=== PATIENT | female | born 1940 | race Caucasian/White ===

== ENCOUNTER 2019-01-01 21:18 | Inpatient (IN) | payer MEDICARE, OTHER ==
[2019-01-01 22:08] LABS: ADD MAN DIFF? NO
[2019-01-01 22:09] LABS: WHITE BLOOD COUNT 11.8 10^3/ul (4.8-10.8)
[2019-01-01 22:09] LABS: ABNORMAL IP MESSAGE 1; BASOPHIL # 0.1 10^3/ul (0.0-0.1); BASOPHILS % 0.4 % (0.0-2.0); EOSINOPHILS # 0.1 10^3/ul (0.0-0.5); EOSINOPHILS % 0.9 % (0.0-7.0); HEMATOCRIT 55.1 % (37.0-47.0); HEMOGLOBIN 16.5 g/dl (12.0-16.0); LYMPHOCYTES # 1.7 10^3/ul (0.8-2.9); LYMPHOCYTES % 14.3 % (15.0-51.0); MEAN CORPUSCULAR HEMOGLOBIN 32.5 pg (29.0-33.0); MEAN CORPUSCULAR HGB CONC 29.9 g/dl (32.0-37.0); MEAN CORPUSCULAR VOLUME 108.7 fl (82.0-101.0); MONOCYTE # 0.5 10^3/ul (0.3-0.9); MONOCYTES % 4.3 % (0.0-11.0); NEUTROPHIL # 9.4 10^3/ul (1.6-7.5); NEUTROPHILS % 79.5 % (39.0-77.0); PLATELET COUNT 119 10^3/UL (140-415); RED BLOOD COUNT 5.07 10^6/ul (4.20-5.40); RED CELL DISTRIBUTION WIDTH 13.5 % (11.5-14.5)
[2019-01-01 22:19] LABS: MEAN PLATELET VOLUME 14.5 fl (7.4-10.4)
[2019-01-01 22:29] LABS: ANION GAP 11 (5-13); BLOOD UREA NITROGEN 76 mg/dl (7-20); CALCIUM 10.8 mg/dl (8.4-10.2); CARBON DIOXIDE 26 mmol/L (21-31); CHLORIDE 138 mmol/L (97-110); CREATININE 1.69 mg/dl (0.44-1.00); GLUCOSE 219 mg/dl (70-220); POTASSIUM 3.8 mmol/L (3.5-5.1)
[2019-01-01 22:38] LABS: SODIUM 175 mmol/L (135-144)
[2019-01-01] MEDS: SOD CHLORIDE 0.9% 2,000 ML IV (22:53)
[2019-01-01] MEDS ORDERED: ONDANSETRON 4 MG INJ IV (23:30)
[2019-01-01] MEDS ORDERED: ACETAMINOPHEN 325 MG TAB PO (23:30)
[2019-01-02] MEDS ORDERED: ONDANSETRON 4 MG INJ IV
[2019-01-02] MEDS ORDERED: NACL 0.9% 3 ML SYG IV
[2019-01-02] MEDS: SOD CHLORIDE 0.9% 1,000 ML IV ×2 (00:23→07:31)
[2019-01-02 01:02] LABS: ADD UMIC YES; UR ASCORBIC ACID NEGATIVE (NEGATIVE); UR BACTERIA FEW /HPF (NONE SEEN); UR BILIRUBIN (Dip) NEGATIVE (NEGATIVE); UR BLOOD (Dip) 1+ mg/dL (NEGATIVE); UR CLARITY SLIGHTLY CLOUDY (CLEAR); UR COLOR YELLOW (YELLOW); UR GLUCOSE (Dip) NEGATIVE (NEGATIVE); UR KETONES (Dip) NEGATIVE (NEGATIVE); UR LEUKOCYTE ESTERASE (Dip) 3+ Leu/ul (NEGATIVE); UR MUCUS FEW /HPF (NONE SEEN); UR NITRITE (Dip) NEGATIVE (NEGATIVE); UR RBC 4 /HPF (0-5); UR SPECIFIC GRAVITY (Dip) 1.025 (1.003-1.030); UR TOTAL PROTEIN (Dip) NEGATIVE (NEGATIVE); UR UROBILINOGEN (Dip) 1+ mg/dL (NEGATIVE); UR WBC 112 /HPF (0-5)
[2019-01-02 06:19] LABS: ADD MAN DIFF? NO
[2019-01-02 06:26] LABS: WHITE BLOOD COUNT 13.7 10^3/ul (4.8-10.8)
[2019-01-02 06:26] LABS: ABNORMAL IP MESSAGE 1; BASOPHIL # 0.1 10^3/ul (0.0-0.1); BASOPHILS % 0.4 % (0.0-2.0); EOSINOPHILS # 0.2 10^3/ul (0.0-0.5); EOSINOPHILS % 1.2 % (0.0-7.0); HEMATOCRIT 57.2 % (37.0-47.0); HEMOGLOBIN 17.2 g/dl (12.0-16.0); LYMPHOCYTES # 2.3 10^3/ul (0.8-2.9); LYMPHOCYTES % 16.9 % (15.0-51.0); MEAN CORPUSCULAR HEMOGLOBIN 32.7 pg (29.0-33.0); MEAN CORPUSCULAR HGB CONC 30.1 g/dl (32.0-37.0); MEAN CORPUSCULAR VOLUME 108.7 fl (82.0-101.0); MEAN PLATELET VOLUME 14.7 fl (7.4-10.4); MONOCYTE # 0.7 10^3/ul (0.3-0.9); MONOCYTES % 4.7 % (0.0-11.0); NEUTROPHIL # 10.5 10^3/ul (1.6-7.5); NEUTROPHILS % 76.5 % (39.0-77.0); PLATELET COUNT 103 10^3/UL (140-415); RED BLOOD COUNT 5.26 10^6/ul (4.20-5.40); RED CELL DISTRIBUTION WIDTH 13.6 % (11.5-14.5)
[2019-01-02 06:31] LABS: POSITIVE DIFF @See below
[2019-01-02 07:00] LABS: ALANINE AMINOTRANSFERASE 49 IU/L (13-69); ALBUMIN 4.1 g/dl (3.3-4.9); ALBUMIN/GLOBULIN RATIO 1.17; ALKALINE PHOSPHATASE 130 IU/L (42-121); ANION GAP 11 (5-13); ASPARTATE AMINO TRANSFERASE 39 IU/L (15-46); BILIRUBIN,INDIRECT 0.5 mg/dl (0-1.1); BILIRUBIN,TOTAL 0.5 mg/dl (0.2-1.3); BLOOD UREA NITROGEN 65 mg/dl (7-20); CALCIUM 10.5 mg/dl (8.4-10.2); CARBON DIOXIDE 25 mmol/L (21-31); CHLORIDE 141 mmol/L (97-110); CREATININE 1.47 mg/dl (0.44-1.00); GLUCOSE 115 mg/dl (70-220); POTASSIUM 3.9 mmol/L (3.5-5.1); TOTAL PROTEIN 7.6 g/dl (6.1-8.1)
[2019-01-02 07:05] LABS: HEMOGLOBIN A1C 5.8 % (0-5.9)
[2019-01-02 07:05] LABS: SODIUM 177 mmol/L (135-144)
[2019-01-02] MEDS: FAMOTIDINE 20 MG INJ IV (08:30)
[2019-01-02] MEDS: ENOXAPARIN 30 MG/0.3 ML SYG SC (08:35)
[2019-01-02 10:02] LABS: PREALBUMIN 23.6 mg/dl (17.6-36.0)
[2019-01-02] MEDS: DEXTROSE 5% 1,000 ML IV ×2 (11:32→22:13)
[2019-01-02 13:34] LABS: AADO2 Arterial 166.9 mmHg (7.0-24.0); Allen Test ACCEPTAB; Arterial Base Excess -0.8 mmol/L (-3.0-3); Arterial Blood Gas Oxygen Sat 98.4 mmHG (95.0-100.0); Arterial COHb 0.3 % (0.0-3.0); Arterial Fraction of Oxyhgb 97.9 % (93.0-99.0); Arterial HCO3 24.3 mmol/L (22.0-26.0); Arterial MetHb 0.2 % (0.0-1.5); Arterial pCO2 41.5 mmhg (35-45); MODE MASK - SIMPLE; Site Left Radial
[2019-01-02 13:51] LABS: ADD UMIC YES; UR AMORPHOUS CRYSTAL FEW /HPF (NONE SEEN); UR ASCORBIC ACID NEGATIVE (NEGATIVE); UR BACTERIA FEW /HPF (NONE SEEN); UR BILIRUBIN (Dip) NEGATIVE (NEGATIVE); UR BLOOD (Dip) 1+ mg/dL (NEGATIVE); UR CLARITY CLOUDY (CLEAR); UR COLOR YELLOW (YELLOW); UR GLUCOSE (Dip) NEGATIVE (NEGATIVE); UR KETONES (Dip) NEGATIVE (NEGATIVE); UR LEUKOCYTE ESTERASE (Dip) 3+ Leu/ul (NEGATIVE); UR MUCUS FEW /HPF (NONE SEEN); UR NITRITE (Dip) NEGATIVE (NEGATIVE); UR RBC 96 /HPF (0-5); UR SPECIFIC GRAVITY (Dip) 1.024 (1.003-1.030); UR SQUAMOUS EPITHELIAL CELL FEW /HPF (FEW); UR TOTAL PROTEIN (Dip) 2+ mg/dl (NEGATIVE); UR UROBILINOGEN (Dip) NEGATIVE (NEGATIVE); UR WBC 12 /HPF (0-5)
[2019-01-02 14:23] LABS: CREATININE,URINE RANDOM 93.76 mg/dl (20-320)
[2019-01-02 14:23] LABS: SODIUM,URINE RANDOM 55 mmol/L (30-90)
[2019-01-02] MEDS: CEFTRIAXONE 1 GM/50 ML (PMX) 50 ML IVPB (14:27)
[2019-01-02 14:29] LABS: OSMOLALITY,URINE 896 mOsm/kg (250-1200)
[2019-01-02 14:45] LABS: THYROID STIMULATING HORMONE 0.491 MIU/L (0.465-4.680)
[2019-01-02 17:10] LABS: ANION GAP 10 (5-13); BLOOD UREA NITROGEN 57 mg/dl (7-20); CALCIUM 10.1 mg/dl (8.4-10.2); CARBON DIOXIDE 22 mmol/L (21-31); CHLORIDE 142 mmol/L (97-110); CREATININE 1.37 mg/dl (0.44-1.00); GLUCOSE 138 mg/dl (70-220); POTASSIUM 4.9 mmol/L (3.5-5.1)
[2019-01-02 17:16] LABS: SODIUM 174 mmol/L (135-144)
[2019-01-02 21:05] LABS: AADO2 Arterial 195.8 mmHg (7.0-24.0); Allen Test ACCEPTAB; Arterial Base Excess -1.7 mmol/L (-3.0-3); Arterial Blood Gas Oxygen Sat 99.4 mmHG (95.0-100.0); Arterial COHb 0.3 % (0.0-3.0); Arterial Fraction of Oxyhgb 98.7 % (93.0-99.0); Arterial HCO3 22.2 mmol/L (22.0-26.0); Arterial MetHb 0.4 % (0.0-1.5); Arterial pCO2 35.5 mmhg (35-45); MODE MASK - NRB; Site Left Radial
[2019-01-02] MEDS: morphine 2 MG INJ IV (23:30)
[2019-01-02] MEDS: ACETAMINOPHEN 650 MG SUPP PR (23:33)
[2019-01-03 06:12] LABS: ALANINE AMINOTRANSFERASE 35 IU/L (13-69); ALBUMIN 3.5 g/dl (3.3-4.9); ALKALINE PHOSPHATASE 125 IU/L (42-121); ANION GAP 7 (5-13); ASPARTATE AMINO TRANSFERASE 48 IU/L (15-46); BLOOD UREA NITROGEN 48 mg/dl (7-20); CALCIUM 9.6 mg/dl (8.4-10.2); CARBON DIOXIDE 21 mmol/L (21-31); CHLORIDE 141 mmol/L (97-110); GLUCOSE 194 mg/dl (70-220); POTASSIUM 3.4 mmol/L (3.5-5.1)
[2019-01-03 06:13] LABS: SODIUM 169 mmol/L (135-144)
[2019-01-03 06:25] LABS: PHOSPHORUS 2.8 mg/dl (2.5-4.9)
[2019-01-03 06:25] LABS: MAGNESIUM 2.2 mg/dl (1.7-2.5)
[2019-01-03 07:30] LABS: Allen Test ACCEPTAB; Arterial Base Excess -2.3 mmol/L (-3.0-3); Arterial Blood Gas Oxygen Sat 98.9 mmHG (95.0-100.0); Arterial COHb 0.3 % (0.0-3.0); Arterial Fraction of Oxyhgb 98.3 % (93.0-99.0); Arterial HCO3 22.8 mmol/L (22.0-26.0); Arterial MetHb 0.3 % (0.0-1.5); Arterial pCO2 40.6 mmhg (35-45); MODE MASK - SIMPLE; Site Left Radial
[2019-01-03] MEDS: DEXTROSE 5% 1,000 ML IV ×3 (08:05→18:09)
[2019-01-03] MEDS: FAMOTIDINE 20 MG INJ IV (08:05)
[2019-01-03] MEDS: POTASSIUM CHLORIDE 20 MEQ POWDER FOR ORAL SOLN NGT (08:06)
[2019-01-03] MEDS: ENOXAPARIN 30 MG/0.3 ML SYG SC (08:09)
[2019-01-03] MEDS: morphine 2 MG INJ IV ×3 (09:22→18:52)
[2019-01-03] MEDS: CEFTRIAXONE 1 GM/50 ML (PMX) 50 ML IVPB (12:54)
[2019-01-03 14:21] LABS: CREATININE, RANDOM URINE 94 mg/dL (20-275); MICROALBUMIN 19.7 mg/dL; MICROALBUMIN/CREATININE RATIO 210 (<30)
[2019-01-03 15:07] LABS: ANION GAP 2 (5-13); BLOOD UREA NITROGEN 44 mg/dl (7-20); CALCIUM 9.3 mg/dl (8.4-10.2); CARBON DIOXIDE 24 mmol/L (21-31); CHLORIDE 135 mmol/L (97-110); CREATININE 1.06 mg/dl (0.44-1.00); GLUCOSE 161 mg/dl (70-220); POTASSIUM 4.9 mmol/L (3.5-5.1)
[2019-01-03 15:30] LABS: SODIUM 161 mmol/L (135-144)
[2019-01-04] MEDS: morphine 2 MG INJ IV (00:18)
[2019-01-04] MEDS: DEXTROSE 5% 1,000 ML IV ×2 (03:54→13:42)
[2019-01-04 06:30] LABS: ADD MAN DIFF? NO
[2019-01-04 06:36] LABS: ABNORMAL IP MESSAGE 1; BASOPHILS % 0.3 % (0.0-2.0); EOSINOPHILS # 0.4 10^3/ul (0.0-0.5); EOSINOPHILS % 2.9 % (0.0-7.0); HEMATOCRIT 43.7 % (37.0-47.0); HEMOGLOBIN 13.2 g/dl (12.0-16.0); LYMPHOCYTES # 1.8 10^3/ul (0.8-2.9); MEAN CORPUSCULAR HEMOGLOBIN 32.7 pg (29.0-33.0); MEAN CORPUSCULAR HGB CONC 30.2 g/dl (32.0-37.0); MEAN CORPUSCULAR VOLUME 108.2 fl (82.0-101.0); MONOCYTE # 0.7 10^3/ul (0.3-0.9); MONOCYTES % 5.9 % (0.0-11.0); NEUTROPHIL # 9.6 10^3/ul (1.6-7.5); NEUTROPHILS % 76.5 % (39.0-77.0); PLATELET COUNT 56 10^3/UL (140-415); RED BLOOD COUNT 4.04 10^6/ul (4.20-5.40); RED CELL DISTRIBUTION WIDTH 13.5 % (11.5-14.5)
[2019-01-04 06:36] LABS: WHITE BLOOD COUNT 12.6 10^3/ul (4.8-10.8)
[2019-01-04 06:40] LABS: POSITIVE DIFF @See below
[2019-01-04 07:31] LABS: ANION GAP 6 (5-13); BLOOD UREA NITROGEN 34 mg/dl (7-20); CALCIUM 9.2 mg/dl (8.4-10.2); CARBON DIOXIDE 25 mmol/L (21-31); CHLORIDE 127 mmol/L (97-110); CREATININE 0.98 mg/dl (0.44-1.00); GLUCOSE 129 mg/dl (70-220); MAGNESIUM 1.9 mg/dl (1.7-2.5); PHOSPHORUS 2.4 mg/dl (2.5-4.9); POTASSIUM 3.7 mmol/L (3.5-5.1); SODIUM 158 mmol/L (135-144)
[2019-01-04] MEDS: NEUTRA-PHOS 250 MG PACKET GTB ×2 (08:53→21:21)
[2019-01-04] MEDS: FAMOTIDINE 20 MG INJ IV (08:53)
[2019-01-04] MEDS: ENOXAPARIN 30 MG/0.3 ML SYG SC (08:55)
[2019-01-04] MEDS: CEFTRIAXONE 1 GM/50 ML (PMX) 50 ML IVPB (13:42)
[2019-01-04 16:41] LABS: ANION GAP 6 (5-13); BLOOD UREA NITROGEN 25 mg/dl (7-20); CARBON DIOXIDE 24 mmol/L (21-31); CHLORIDE 120 mmol/L (97-110); CREATININE 0.77 mg/dl (0.44-1.00); GLUCOSE 139 mg/dl (70-220); POTASSIUM 3.6 mmol/L (3.5-5.1); SODIUM 150 mmol/L (135-144)
[2019-01-04 23:11] LABS: ANION GAP 7 (5-13); BLOOD UREA NITROGEN 20 mg/dl (7-20); CALCIUM 8.9 mg/dl (8.4-10.2); CARBON DIOXIDE 24 mmol/L (21-31); CHLORIDE 115 mmol/L (97-110); CREATININE 0.73 mg/dl (0.44-1.00); GLUCOSE 138 mg/dl (70-220); SODIUM 146 mmol/L (135-144)
[2019-01-05] MEDS: DEXTROSE 5% 1,000 ML IV (00:33)
[2019-01-05] MEDS ORDERED: VANCOMYCIN IV PER PHARMACY XX (02:30)
[2019-01-05 03:48] LABS: ADD MAN DIFF? NO
[2019-01-05 04:06] LABS: WHITE BLOOD COUNT 7.4 10^3/ul (4.8-10.8)
[2019-01-05 04:06] LABS: ABNORMAL IP MESSAGE 1; BASOPHILS % 0.3 % (0.0-2.0); EOSINOPHILS # 0.3 10^3/ul (0.0-0.5); EOSINOPHILS % 4.2 % (0.0-7.0); HEMATOCRIT 35.8 % (37.0-47.0); HEMOGLOBIN 11.5 g/dl (12.0-16.0); LYMPHOCYTES # 1.4 10^3/ul (0.8-2.9); LYMPHOCYTES % 19.6 % (15.0-51.0); MEAN CORPUSCULAR HEMOGLOBIN 32.6 pg (29.0-33.0); MEAN CORPUSCULAR HGB CONC 32.1 g/dl (32.0-37.0); MEAN CORPUSCULAR VOLUME 101.4 fl (82.0-101.0); MEAN PLATELET VOLUME 13.8 fl (7.4-10.4); MONOCYTE # 0.3 10^3/ul (0.3-0.9); MONOCYTES % 4.1 % (0.0-11.0); NEUTROPHIL # 5.3 10^3/ul (1.6-7.5); NEUTROPHILS % 71.5 % (39.0-77.0); PLATELET COUNT 70 10^3/UL (140-415); RED BLOOD COUNT 3.53 10^6/ul (4.20-5.40); RED CELL DISTRIBUTION WIDTH 12.9 % (11.5-14.5)
[2019-01-05 04:11] LABS: POSITIVE DIFF @See below
[2019-01-05 04:12] LABS: ANION GAP 4 (5-13); BLOOD UREA NITROGEN 17 mg/dl (7-20); CALCIUM 8.8 mg/dl (8.4-10.2); CARBON DIOXIDE 24 mmol/L (21-31); CHLORIDE 117 mmol/L (97-110); CREATININE 0.73 mg/dl (0.44-1.00); GLUCOSE 127 mg/dl (70-220); MAGNESIUM 1.7 mg/dl (1.7-2.5); PHOSPHORUS 1.9 mg/dl (2.5-4.9); SODIUM 145 mmol/L (135-144)
[2019-01-05 04:23] LABS: POTASSIUM 2.8 mmol/L (3.5-5.1)
[2019-01-05] MEDS: VANCOMYCIN HCL 1.5 GM in SOD CHLORIDE 0.9% 250 ML IVPB (04:42)
[2019-01-05] MEDS: POTASSIUM CHLORIDE 20 MEQ POWDER FOR ORAL SOLN GTB (06:12)
[2019-01-05] MEDS: POTASSIUM CHLORIDE 20 MEQ POWDER FOR ORAL SOLN NGT (06:56)
[2019-01-05] MEDS: MAGNESIUM SULFATE 2 GM/50 ML 50 ML IVPB (08:47)
[2019-01-05] MEDS: D5W-0.45 NACL + KCL 40 MEQ 1,000 ML IV (08:47)
[2019-01-05] MEDS: FAMOTIDINE 20 MG INJ IV (08:48)
[2019-01-05] MEDS: NEUTRA-PHOS 250 MG PACKET GTB ×2 (08:48→20:18)
[2019-01-05] MEDS: CEFTRIAXONE 1 GM/50 ML (PMX) 50 ML IVPB (13:28)
[2019-01-06] MEDS: D5W-0.45 NACL + KCL 40 MEQ 1,000 ML IV ×2 (04:00→08:07)
[2019-01-06] MEDS: VANCOMYCIN HCL 1.25 GM in DEXTROSE 5% 250 ML IVPB (04:39)
[2019-01-06 06:18] LABS: MAGNESIUM 1.9 mg/dl (1.7-2.5)
[2019-01-06 06:20] LABS: PHOSPHORUS 2.1 mg/dl (2.5-4.9)
[2019-01-06 06:27] LABS: ANION GAP 3 (5-13); BLOOD UREA NITROGEN 9 mg/dl (7-20); CALCIUM 8.9 mg/dl (8.4-10.2); CARBON DIOXIDE 25 mmol/L (21-31); CHLORIDE 116 mmol/L (97-110); CREATININE 0.63 mg/dl (0.44-1.00); GLUCOSE 141 mg/dl (70-220); POTASSIUM 3.6 mmol/L (3.5-5.1); SODIUM 144 mmol/L (135-144)
[2019-01-06] MEDS: ASCORBIC ACID 500 MG TAB NGT (08:20)
[2019-01-06] MEDS: FAMOTIDINE 20 MG INJ IV (08:20)
[2019-01-06] MEDS: NEUTRA-PHOS 250 MG PACKET GTB ×2 (08:20→21:00)
[2019-01-06] MEDS: ZINC SULFATE 220 MG CAP NGT (08:21)
[2019-01-06] MEDS ORDERED: NEUTRA-PHOS 250 MG PACKET GTB (09:00)
[2019-01-06] MEDS: CEFTRIAXONE 1 GM/50 ML (PMX) 50 ML IVPB (13:12)
[2019-01-06 14:37] LABS: HAAIG REFLEX REFLEX FILED
[2019-01-06 14:40] LABS: PLATELET COUNT 80 10^3/UL (140-415)
[2019-01-06 14:49] LABS: LACTATE DEHYDROGENASE 446 IU/L (313-618)
[2019-01-06 14:55] LABS: INR 1.11; PARTIAL THROMBOPLASTIN TIME 36.7 Sec (23.0-35.0); PROTIME 14.4 Sec (11.9-14.9); PT RATIO 1.1
[2019-01-06 15:02] LABS: D-DIMER 1375.14 ng/ml (<460)
[2019-01-06 15:18] LABS: THROMBIN TIME 16.3 SEC (13.8-19.1)
[2019-01-06 15:21] LABS: HEPATITIS B SURFACE ANTIGEN NEGATIVE (NEGATIVE)
[2019-01-06 15:39] LABS: HEPATITIS B CORE ANTIBODY NEGATIVE (NEGATIVE); HEPATITIS C VIRAL ANTIBODY NEGATIVE (NEGATIVE); HIV 1&2 ANTIBODY NEGATIVE (NEGATIVE)
[2019-01-06 16:36] LABS: FIBRIN SPLIT PRODUCT >10 and <40 ug/ml (<10)
[2019-01-06] MEDS: morphine 2 MG INJ IV (22:05)
[2019-01-07] MEDS: D5W-0.45 NACL + KCL 40 MEQ 1,000 ML IV (04:33)
[2019-01-07] MEDS: VANCOMYCIN HCL 1.25 GM in DEXTROSE 5% 250 ML IVPB (04:34)
[2019-01-07 05:52] LABS: ADD MAN DIFF? NO
[2019-01-07 05:58] LABS: ABNORMAL IP MESSAGE 1; BASOPHILS % 0.3 % (0.0-2.0); EOSINOPHILS # 0.4 10^3/ul (0.0-0.5); HEMATOCRIT 36.3 % (37.0-47.0); HEMOGLOBIN 11.8 g/dl (12.0-16.0); LYMPHOCYTES # 1.9 10^3/ul (0.8-2.9); LYMPHOCYTES % 25.7 % (15.0-51.0); MEAN CORPUSCULAR HEMOGLOBIN 32.9 pg (29.0-33.0); MEAN CORPUSCULAR HGB CONC 32.5 g/dl (32.0-37.0); MEAN CORPUSCULAR VOLUME 101.1 fl (82.0-101.0); MEAN PLATELET VOLUME 14.5 fl (7.4-10.4); MONOCYTE # 0.5 10^3/ul (0.3-0.9); MONOCYTES % 7.2 % (0.0-11.0); NEUTROPHIL # 4.5 10^3/ul (1.6-7.5); NEUTROPHILS % 61.3 % (39.0-77.0); PLATELET COUNT 98 10^3/UL (140-415); RED BLOOD COUNT 3.59 10^6/ul (4.20-5.40); RED CELL DISTRIBUTION WIDTH 12.5 % (11.5-14.5)
[2019-01-07 05:58] LABS: WHITE BLOOD COUNT 7.4 10^3/ul (4.8-10.8)
[2019-01-07 06:04] LABS: POSITIVE DIFF @See below
[2019-01-07] MEDS: morphine 2 MG INJ IV (06:22)
[2019-01-07 06:23] LABS: ANION GAP -1 (5-13); BLOOD UREA NITROGEN 7 mg/dl (7-20); CALCIUM 8.9 mg/dl (8.4-10.2); CARBON DIOXIDE 30 mmol/L (21-31); CHLORIDE 110 mmol/L (97-110); CREATININE 0.68 mg/dl (0.44-1.00); GLUCOSE 101 mg/dl (70-220); MAGNESIUM 1.6 mg/dl (1.7-2.5); PHOSPHORUS 2.4 mg/dl (2.5-4.9); POTASSIUM 3.8 mmol/L (3.5-5.1); SODIUM 139 mmol/L (135-144)
[2019-01-07] MEDS: ASCORBIC ACID 500 MG TAB NGT (10:58)
[2019-01-07] MEDS: ZINC SULFATE 220 MG CAP NGT (10:59)
[2019-01-07] MEDS: FAMOTIDINE 20 MG TAB PO (10:59)
[2019-01-07] MEDS: NEUTRA-PHOS 250 MG PACKET GTB ×2 (10:59→21:31)
[2019-01-07] MEDS: MAGNESIUM SULFATE 2 GM/50 ML 50 ML IVPB (10:59)
[2019-01-07] MEDS ORDERED: MAGNESIUM SULFATE 2 GM/50 ML 50 ML IVPB (11:00)
[2019-01-07] MEDS: MULTIVITAMINS 30 ML CUP NGT (13:18)
[2019-01-07] MEDS: CEFTRIAXONE 1 GM/50 ML (PMX) 50 ML IVPB (13:19)
[2019-01-08 05:40] LABS: ADD MAN DIFF? NO
[2019-01-08 06:02] LABS: ABNORMAL IP MESSAGE 1; BASOPHILS % 0.3 % (0.0-2.0); EOSINOPHILS # 0.2 10^3/ul (0.0-0.5); EOSINOPHILS % 3.6 % (0.0-7.0); HEMATOCRIT 35.3 % (37.0-47.0); HEMOGLOBIN 11.6 g/dl (12.0-16.0); LYMPHOCYTES # 1.6 10^3/ul (0.8-2.9); LYMPHOCYTES % 23.5 % (15.0-51.0); MEAN CORPUSCULAR HEMOGLOBIN 32.2 pg (29.0-33.0); MEAN CORPUSCULAR HGB CONC 32.9 g/dl (32.0-37.0); MEAN CORPUSCULAR VOLUME 98.1 fl (82.0-101.0); MEAN PLATELET VOLUME 14.2 fl (7.4-10.4); MONOCYTE # 0.5 10^3/ul (0.3-0.9); MONOCYTES % 7.1 % (0.0-11.0); NEUTROPHIL # 4.3 10^3/ul (1.6-7.5); NEUTROPHILS % 64.7 % (39.0-77.0); PLATELET COUNT 107 10^3/UL (140-415); RED CELL DISTRIBUTION WIDTH 12.8 % (11.5-14.5)
[2019-01-08 06:02] LABS: WHITE BLOOD COUNT 6.6 10^3/ul (4.8-10.8)
[2019-01-08 06:16] LABS: ANION GAP 3 (5-13); BLOOD UREA NITROGEN 12 mg/dl (7-20); CALCIUM 8.6 mg/dl (8.4-10.2); CARBON DIOXIDE 27 mmol/L (21-31); CHLORIDE 105 mmol/L (97-110); CREATININE 0.73 mg/dl (0.44-1.00); GLUCOSE 131 mg/dl (70-220); MAGNESIUM 1.7 mg/dl (1.7-2.5); PHOSPHORUS 2.5 mg/dl (2.5-4.9); POTASSIUM 3.5 mmol/L (3.5-5.1); SODIUM 135 mmol/L (135-144)
[2019-01-08 06:50] LABS: POSITIVE DIFF @See below
[2019-01-08] MEDS: MULTIVITAMINS 30 ML CUP NGT (09:04)
[2019-01-08] MEDS: FAMOTIDINE 20 MG TAB PO (09:05)
[2019-01-08] MEDS: ZINC SULFATE 220 MG CAP NGT (09:05)
[2019-01-08] MEDS: ASCORBIC ACID 500 MG TAB NGT (09:05)
[2019-01-08] MEDS: NEUTRA-PHOS 250 MG PACKET GTB ×2 (09:05→20:30)
[2019-01-08] MEDS: CEFTRIAXONE 1 GM/50 ML (PMX) 50 ML IVPB (14:23)
[2019-01-09 06:38] LABS: ANION GAP 9 (5-13); BLOOD UREA NITROGEN 12 mg/dl (7-20); CALCIUM 8.7 mg/dl (8.4-10.2); CARBON DIOXIDE 23 mmol/L (21-31); CHLORIDE 107 mmol/L (97-110); CREATININE 0.72 mg/dl (0.44-1.00); GLUCOSE 112 mg/dl (70-220); MAGNESIUM 1.6 mg/dl (1.7-2.5); PHOSPHORUS 3.1 mg/dl (2.5-4.9); POTASSIUM 3.2 mmol/L (3.5-5.1); SODIUM 139 mmol/L (135-144)
[2019-01-09] MEDS: MAGNESIUM SULFATE 2 GM/50 ML 50 ML IVPB (09:55)
[2019-01-09] MEDS: MULTIVITAMINS 30 ML CUP NGT (09:55)
[2019-01-09] MEDS: NEUTRA-PHOS 250 MG PACKET PO ×2 (09:55→21:03)
[2019-01-09] MEDS: FAMOTIDINE 20 MG TAB PO (09:56)
[2019-01-09] MEDS: POTASSIUM CHLORIDE (SR) 20 MEQ TAB PO (09:56)
[2019-01-09] MEDS: ASCORBIC ACID 500 MG TAB NGT (09:56)
[2019-01-09] MEDS: ZINC SULFATE 220 MG CAP NGT (09:56)
[2019-01-09] MEDS: CEFTRIAXONE 1 GM/50 ML (PMX) 50 ML IVPB (13:58)
[2019-01-09] MEDS: ACETAMINOPHEN 325 MG TAB PO (21:04)
[2019-01-10 05:32] LABS: ADD MAN DIFF? NO
[2019-01-10 05:45] LABS: WHITE BLOOD COUNT 6.4 10^3/ul (4.8-10.8)
[2019-01-10 05:45] LABS: BASOPHILS % 0.2 % (0.0-2.0); EOSINOPHILS # 0.3 10^3/ul (0.0-0.5); HEMATOCRIT 34.6 % (37.0-47.0); HEMOGLOBIN 11.3 g/dl (12.0-16.0); LYMPHOCYTES # 0.8 10^3/ul (0.8-2.9); LYMPHOCYTES % 12.9 % (15.0-51.0); MEAN CORPUSCULAR HEMOGLOBIN 32.5 pg (29.0-33.0); MEAN CORPUSCULAR HGB CONC 32.7 g/dl (32.0-37.0); MEAN CORPUSCULAR VOLUME 99.4 fl (82.0-101.0); MONOCYTE # 0.4 10^3/ul (0.3-0.9); MONOCYTES % 5.8 % (0.0-11.0); NEUTROPHIL # 4.9 10^3/ul (1.6-7.5); NEUTROPHILS % 76.6 % (39.0-77.0); PLATELET COUNT 151 10^3/UL (140-415); RED BLOOD COUNT 3.48 10^6/ul (4.20-5.40); RED CELL DISTRIBUTION WIDTH 13.2 % (11.5-14.5)
[2019-01-10 06:03] LABS: ANION GAP 7 (5-13); BLOOD UREA NITROGEN 13 mg/dl (7-20); CALCIUM 8.7 mg/dl (8.4-10.2); CARBON DIOXIDE 25 mmol/L (21-31); CHLORIDE 108 mmol/L (97-110); GLUCOSE 87 mg/dl (70-220); PHOSPHORUS 3.3 mg/dl (2.5-4.9); POTASSIUM 3.5 mmol/L (3.5-5.1); SODIUM 140 mmol/L (135-144)
[2019-01-10] MEDS: FAMOTIDINE 20 MG TAB PO (09:52)
[2019-01-10] MEDS: ASCORBIC ACID 500 MG TAB NGT (09:52)
[2019-01-10] MEDS: NEUTRA-PHOS 250 MG PACKET PO ×2 (09:55→21:27)
[2019-01-10] MEDS: MULTIVITAMINS 30 ML CUP NGT (09:55)
[2019-01-10] MEDS: CEFTRIAXONE 1 GM/50 ML (PMX) 50 ML IVPB (13:40)
[2019-01-10] MEDS ORDERED: VANCOMYCIN IV PER PHARMACY XX (18:30)
[2019-01-10] MEDS: ACETAMINOPHEN 325 MG TAB PO (18:49)
[2019-01-10] MEDS: LORATADINE 10 MG TAB PO (21:27)
[2019-01-10] MEDS: PIPER-TAZO 3.375 GM IV (PMX) 100 ML IVPB (21:28)
[2019-01-10] MEDS: VANCOMYCIN HCL 1.5 GM in SOD CHLORIDE 0.9% 250 ML IVPB (23:28)
[2019-01-10] MEDS: FLUOCINONIDE 0.05% 15 GM CR TOP (23:36)
[2019-01-11 05:00] LABS: ADD MAN DIFF? NO
[2019-01-11 05:01] LABS: ABNORMAL IP MESSAGE 1; BASOPHILS % 0.1 % (0.0-2.0); EOSINOPHILS # 0.2 10^3/ul (0.0-0.5); EOSINOPHILS % 3.2 % (0.0-7.0); HEMATOCRIT 34.5 % (37.0-47.0); HEMOGLOBIN 11.2 g/dl (12.0-16.0); LYMPHOCYTES # 0.6 10^3/ul (0.8-2.9); MEAN CORPUSCULAR HEMOGLOBIN 32.3 pg (29.0-33.0); MEAN CORPUSCULAR HGB CONC 32.5 g/dl (32.0-37.0); MEAN CORPUSCULAR VOLUME 99.4 fl (82.0-101.0); MEAN PLATELET VOLUME 12.4 fl (7.4-10.4); MONOCYTE # 0.2 10^3/ul (0.3-0.9); MONOCYTES % 3.2 % (0.0-11.0); NEUTROPHIL # 6.4 10^3/ul (1.6-7.5); NEUTROPHILS % 85.6 % (39.0-77.0); PLATELET COUNT 177 10^3/UL (140-415); RED BLOOD COUNT 3.47 10^6/ul (4.20-5.40); RED CELL DISTRIBUTION WIDTH 13.6 % (11.5-14.5)
[2019-01-11 05:01] LABS: WHITE BLOOD COUNT 7.5 10^3/ul (4.8-10.8)
[2019-01-11 05:35] LABS: POSITIVE DIFF @See below
[2019-01-11 05:36] LABS: LYMPHOCYTES % 7.5 % (15.0-51.0)
[2019-01-11 05:39] LABS: ANION GAP 6 (5-13); BLOOD UREA NITROGEN 12 mg/dl (7-20); CALCIUM 8.6 mg/dl (8.4-10.2); CARBON DIOXIDE 24 mmol/L (21-31); CHLORIDE 110 mmol/L (97-110); CREATININE 0.82 mg/dl (0.44-1.00); GLUCOSE 65 mg/dl (70-220); POTASSIUM 3.5 mmol/L (3.5-5.1); SODIUM 140 mmol/L (135-144)
[2019-01-11] MEDS: PIPER-TAZO 3.375 GM IV (PMX) 100 ML IVPB (05:40)
[2019-01-11] MEDS: MULTIVITAMINS THERAPEUTIC TAB PO (13:05)
[2019-01-11] MEDS: ASCORBIC ACID 500 MG TAB PO (13:05)
[2019-01-11] MEDS: ZINC SULFATE 220 MG CAP PO (13:05)
[2019-01-11] MEDS: FLUOCINONIDE 0.05% 15 GM CR TOP ×2 (13:06→21:29)
[2019-01-11] MEDS: LORATADINE 10 MG TAB PO ×2 (13:06→14:54)
[2019-01-11] MEDS: NEUTRA-PHOS 250 MG PACKET PO ×2 (13:06→21:29)
[2019-01-11] MEDS: FAMOTIDINE 20 MG TAB PO (13:06)
[2019-01-11] MEDS: MEROPENEM 1 GM/50ML(PMX) 50 ML IVPB (21:29)
[2019-01-11] MEDS: VANCOMYCIN HCL 1.25 GM in SOD CHLORIDE 0.9% 250 ML IVPB (22:42)
[2019-01-12] MEDS: LORATADINE 10 MG TAB PO ×2 (09:00→09:23)
[2019-01-12] MEDS: FAMOTIDINE 20 MG TAB PO (09:23)
[2019-01-12] MEDS: ASCORBIC ACID 500 MG TAB PO (09:23)
[2019-01-12] MEDS: NEUTRA-PHOS 250 MG PACKET PO ×2 (09:23→20:48)
[2019-01-12] MEDS: MEROPENEM 1 GM/50ML(PMX) 50 ML IVPB (09:23)
[2019-01-12] MEDS: MULTIVITAMINS THERAPEUTIC TAB PO (09:23)
[2019-01-12] MEDS: ZINC SULFATE 220 MG CAP PO (09:24)
[2019-01-12] MEDS: FLUOCINONIDE 0.05% 15 GM CR TOP ×2 (09:24→20:48)
[2019-01-12] MEDS: VANCOMYCIN HCL 1.25 GM in SOD CHLORIDE 0.9% 250 ML IVPB (22:02)
[2019-01-13 05:16] LABS: ADD MAN DIFF? NO
[2019-01-13 05:20] LABS: BASOPHILS % 0.3 % (0.0-2.0); EOSINOPHILS # 0.3 10^3/ul (0.0-0.5); EOSINOPHILS % 4.3 % (0.0-7.0); HEMATOCRIT 33.6 % (37.0-47.0); HEMOGLOBIN 10.9 g/dl (12.0-16.0); LYMPHOCYTES # 0.9 10^3/ul (0.8-2.9); LYMPHOCYTES % 14.9 % (15.0-51.0); MEAN CORPUSCULAR HEMOGLOBIN 32.2 pg (29.0-33.0); MEAN CORPUSCULAR HGB CONC 32.4 g/dl (32.0-37.0); MEAN CORPUSCULAR VOLUME 99.4 fl (82.0-101.0); MEAN PLATELET VOLUME 11.9 fl (7.4-10.4); MONOCYTE # 0.3 10^3/ul (0.3-0.9); NEUTROPHIL # 4.5 10^3/ul (1.6-7.5); NEUTROPHILS % 75.2 % (39.0-77.0); PLATELET COUNT 209 10^3/UL (140-415); RED BLOOD COUNT 3.38 10^6/ul (4.20-5.40); RED CELL DISTRIBUTION WIDTH 13.2 % (11.5-14.5)
[2019-01-13] MEDS: NEUTRA-PHOS 250 MG PACKET PO ×2 (08:39→21:09)
[2019-01-13] MEDS: ZINC SULFATE 220 MG CAP PO (08:39)
[2019-01-13] MEDS: LORATADINE 10 MG TAB PO ×2 (08:39→08:40)
[2019-01-13] MEDS: MULTIVITAMINS THERAPEUTIC TAB PO (08:39)
[2019-01-13] MEDS: FAMOTIDINE 20 MG TAB PO (08:40)
[2019-01-13] MEDS: ASCORBIC ACID 500 MG TAB PO (08:40)
[2019-01-13] MEDS: FLUOCINONIDE 0.05% 15 GM CR TOP ×2 (08:41→21:09)
[2019-01-13 21:43] LABS: VANCOMYCIN,TROUGH 13.7 ug/ml (10.0-20.0)
[2019-01-13] MEDS: VANCOMYCIN HCL 1.25 GM in SOD CHLORIDE 0.9% 250 ML IVPB (22:23)
[2019-01-14] MEDS: LORATADINE 10 MG TAB PO ×2 (09:00→10:06)
[2019-01-14] MEDS: NEUTRA-PHOS 250 MG PACKET PO ×2 (10:05→20:45)
[2019-01-14] MEDS: ZINC SULFATE 220 MG CAP PO (10:05)
[2019-01-14] MEDS: FLUOCINONIDE 0.05% 15 GM CR TOP ×2 (10:06→20:51)
[2019-01-14] MEDS: ASCORBIC ACID 500 MG TAB PO (10:06)
[2019-01-14] MEDS: FAMOTIDINE 20 MG TAB PO (10:06)
[2019-01-14] MEDS: MULTIVITAMINS THERAPEUTIC TAB PO (10:06)
[2019-01-14] MEDS: RISPERIDONE 1 MG TAB PO (20:45)
[2019-01-14] MEDS ORDERED: RISPERIDONE 0.25 MG TAB PO (21:00)
[2019-01-14] MEDS ORDERED: RISPERIDONE 0.25 MG TAB GTB (21:00)
[2019-01-14] MEDS: VANCOMYCIN HCL 1.25 GM in SOD CHLORIDE 0.9% 250 ML IVPB (21:39)
[2019-01-15] MEDS: ACETAMINOPHEN 325 MG TAB PO ×3 (01:02→16:40)
[2019-01-15 08:43] LABS: CREATININE 0.53 mg/dl (0.44-1.00)
[2019-01-15 08:43] LABS: BLOOD UREA NITROGEN 9 mg/dl (7-20)
[2019-01-15] MEDS: RISPERIDONE 1 MG TAB PO ×3 (09:00→21:04)
[2019-01-15] MEDS: LORATADINE 10 MG TAB PO ×2 (09:00→10:49)
[2019-01-15] MEDS: FLUOCINONIDE 0.05% 15 GM CR TOP ×3 (09:00→21:04)
[2019-01-15] MEDS: NEUTRA-PHOS 250 MG PACKET PO ×3 (09:00→21:04)
[2019-01-15] MEDS: ASCORBIC ACID 500 MG TAB PO (09:21)
[2019-01-15] MEDS: MULTIVITAMINS THERAPEUTIC TAB PO (09:21)
[2019-01-15] MEDS: FAMOTIDINE 20 MG TAB PO (09:21)
[2019-01-15] MEDS: ZINC SULFATE 220 MG CAP PO (09:21)
[2019-01-15] MEDS: VANCOMYCIN HCL 1.25 GM in SOD CHLORIDE 0.9% 250 ML IVPB (21:05)
[2019-01-16] MEDS: MULTIVITAMINS THERAPEUTIC TAB PO (08:59)
[2019-01-16] MEDS: LORATADINE 10 MG TAB PO (09:00)
[2019-01-16] MEDS: FAMOTIDINE 20 MG TAB PO (09:00)
[2019-01-16] MEDS: NEUTRA-PHOS 250 MG PACKET PO ×2 (09:00→21:12)
[2019-01-16] MEDS: ZINC SULFATE 220 MG CAP PO (09:00)
[2019-01-16] MEDS: ASCORBIC ACID 500 MG TAB PO (09:00)
[2019-01-16] MEDS: RISPERIDONE 1 MG TAB PO ×2 (09:00→21:12)
[2019-01-16] MEDS: FLUOCINONIDE 0.05% 15 GM CR TOP ×2 (09:00→21:13)
[2019-01-16] MEDS: VANCOMYCIN HCL 1.25 GM in SOD CHLORIDE 0.9% 250 ML IVPB (21:12)
[2019-01-17 06:39] LABS: ADD MAN DIFF? NO
[2019-01-17 06:47] LABS: WHITE BLOOD COUNT 6.8 10^3/ul (4.8-10.8)
[2019-01-17 06:47] LABS: BASOPHILS % 0.3 % (0.0-2.0); EOSINOPHILS # 0.1 10^3/ul (0.0-0.5); EOSINOPHILS % 1.3 % (0.0-7.0); HEMATOCRIT 34.8 % (37.0-47.0); HEMOGLOBIN 11.2 g/dl (12.0-16.0); LYMPHOCYTES # 1.5 10^3/ul (0.8-2.9); LYMPHOCYTES % 22.2 % (15.0-51.0); MEAN CORPUSCULAR HEMOGLOBIN 31.7 pg (29.0-33.0); MEAN CORPUSCULAR HGB CONC 32.2 g/dl (32.0-37.0); MEAN CORPUSCULAR VOLUME 98.6 fl (82.0-101.0); MEAN PLATELET VOLUME 11.9 fl (7.4-10.4); MONOCYTE # 0.5 10^3/ul (0.3-0.9); MONOCYTES % 6.8 % (0.0-11.0); NEUTROPHIL # 4.7 10^3/ul (1.6-7.5); PLATELET COUNT 268 10^3/UL (140-415); RED BLOOD COUNT 3.53 10^6/ul (4.20-5.40); RED CELL DISTRIBUTION WIDTH 13.2 % (11.5-14.5)
[2019-01-17 07:08] LABS: ANION GAP 5 (5-13); BLOOD UREA NITROGEN 9 mg/dl (7-20); CALCIUM 9.2 mg/dl (8.4-10.2); CARBON DIOXIDE 25 mmol/L (21-31); CHLORIDE 111 mmol/L (97-110); CREATININE 0.54 mg/dl (0.44-1.00); GLUCOSE 111 mg/dl (70-220); POTASSIUM 3.7 mmol/L (3.5-5.1); SODIUM 141 mmol/L (135-144)
[2019-01-17] MEDS: FLUOCINONIDE 0.05% 15 GM CR TOP ×2 (09:06→20:28)
[2019-01-17] MEDS: ASCORBIC ACID 500 MG TAB PO (09:07)
[2019-01-17] MEDS: ZINC SULFATE 220 MG CAP PO (09:07)
[2019-01-17] MEDS: NEUTRA-PHOS 250 MG PACKET PO ×2 (09:07→20:26)
[2019-01-17] MEDS: RISPERIDONE 1 MG TAB PO ×2 (09:07→20:26)
[2019-01-17] MEDS: LORATADINE 10 MG TAB PO (09:07)
[2019-01-17] MEDS: MULTIVITAMINS THERAPEUTIC TAB PO (09:07)
[2019-01-17] MEDS: FAMOTIDINE 20 MG TAB PO (09:07)
[2019-01-17] MEDS: morphine 2 MG INJ IV ×2 (18:07→23:53)
[2019-01-17] MEDS: VANCOMYCIN HCL 1.25 GM in SOD CHLORIDE 0.9% 250 ML IVPB (22:38)
[2019-01-18] MEDS: morphine 2 MG INJ IV ×2 (03:59→09:16)
[2019-01-18] MEDS: NEUTRA-PHOS 250 MG PACKET PO ×2 (09:17→20:57)
[2019-01-18] MEDS: MULTIVITAMINS THERAPEUTIC TAB PO (09:17)
[2019-01-18] MEDS: RISPERIDONE 1 MG TAB PO ×2 (09:17→20:57)
[2019-01-18] MEDS: ZINC SULFATE 220 MG CAP PO (09:17)
[2019-01-18] MEDS: FAMOTIDINE 20 MG TAB PO (09:17)
[2019-01-18] MEDS: LORATADINE 10 MG TAB PO (09:17)
[2019-01-18] MEDS: ASCORBIC ACID 500 MG TAB PO (09:17)
[2019-01-18] MEDS: FLUOCINONIDE 0.05% 15 GM CR TOP ×2 (09:18→20:57)
[2019-01-18] MEDS: ACETAMINOPHEN 325 MG TAB PO (13:28)
[2019-01-18] MEDS: VANCOMYCIN HCL 1.25 GM in SOD CHLORIDE 0.9% 250 ML IVPB (21:21)
[2019-01-19] MEDS: ZINC SULFATE 220 MG CAP PO (10:05)
[2019-01-19] MEDS: MULTIVITAMINS THERAPEUTIC TAB PO (10:05)
[2019-01-19] MEDS: ASCORBIC ACID 500 MG TAB PO (10:05)
[2019-01-19] MEDS: RISPERIDONE 1 MG TAB PO ×2 (10:05→21:46)
[2019-01-19] MEDS: NEUTRA-PHOS 250 MG PACKET PO ×2 (10:05→21:46)
[2019-01-19] MEDS: LORATADINE 10 MG TAB PO (10:06)
[2019-01-19] MEDS: FLUOCINONIDE 0.05% 15 GM CR TOP ×2 (10:06→21:48)
[2019-01-19] MEDS: FAMOTIDINE 20 MG TAB PO (10:06)
[2019-01-19] MEDS: ACETAMINOPHEN 325 MG TAB PO ×2 (10:19→21:46)
[2019-01-19 14:26] LABS: ADD MAN DIFF? NO
[2019-01-19 14:30] LABS: BASOPHILS % 0.5 % (0.0-2.0); EOSINOPHILS # 0.2 10^3/ul (0.0-0.5); EOSINOPHILS % 2.9 % (0.0-7.0); HEMATOCRIT 34.6 % (37.0-47.0); HEMOGLOBIN 11.2 g/dl (12.0-16.0); LYMPHOCYTES # 1.5 10^3/ul (0.8-2.9); LYMPHOCYTES % 23.4 % (15.0-51.0); MEAN CORPUSCULAR HEMOGLOBIN 32.3 pg (29.0-33.0); MEAN CORPUSCULAR HGB CONC 32.4 g/dl (32.0-37.0); MEAN CORPUSCULAR VOLUME 99.7 fl (82.0-101.0); MEAN PLATELET VOLUME 10.8 fl (7.4-10.4); MONOCYTE # 0.5 10^3/ul (0.3-0.9); MONOCYTES % 6.8 % (0.0-11.0); NEUTROPHIL # 4.4 10^3/ul (1.6-7.5); NEUTROPHILS % 65.9 % (39.0-77.0); PLATELET COUNT 314 10^3/UL (140-415); RED BLOOD COUNT 3.47 10^6/ul (4.20-5.40)
[2019-01-19 14:30] LABS: WHITE BLOOD COUNT 6.6 10^3/ul (4.8-10.8)
[2019-01-19 15:00] LABS: ANION GAP 5 (5-13); BLOOD UREA NITROGEN 10 mg/dl (7-20); CALCIUM 9.2 mg/dl (8.4-10.2); CARBON DIOXIDE 28 mmol/L (21-31); CHLORIDE 108 mmol/L (97-110); CREATININE 0.53 mg/dl (0.44-1.00); GLUCOSE 137 mg/dl (70-220); POTASSIUM 4.2 mmol/L (3.5-5.1); SODIUM 141 mmol/L (135-144)
[2019-01-19] MEDS: VANCOMYCIN HCL 1.25 GM in SOD CHLORIDE 0.9% 250 ML IVPB (21:47)
[2019-01-20] MEDS: morphine 2 MG INJ IV ×3 (02:42→17:44)
[2019-01-20 05:41] LABS: ADD MAN DIFF? NO
[2019-01-20 05:57] LABS: WHITE BLOOD COUNT 5.9 10^3/ul (4.8-10.8)
[2019-01-20 05:57] LABS: BASOPHILS % 0.7 % (0.0-2.0); EOSINOPHILS # 0.3 10^3/ul (0.0-0.5); EOSINOPHILS % 4.2 % (0.0-7.0); HEMATOCRIT 35.4 % (37.0-47.0); HEMOGLOBIN 11.3 g/dl (12.0-16.0); LYMPHOCYTES # 2.3 10^3/ul (0.8-2.9); LYMPHOCYTES % 38.5 % (15.0-51.0); MEAN CORPUSCULAR HEMOGLOBIN 31.7 pg (29.0-33.0); MEAN CORPUSCULAR HGB CONC 31.9 g/dl (32.0-37.0); MEAN CORPUSCULAR VOLUME 99.4 fl (82.0-101.0); MEAN PLATELET VOLUME 10.7 fl (7.4-10.4); MONOCYTE # 0.4 10^3/ul (0.3-0.9); MONOCYTES % 7.3 % (0.0-11.0); NEUTROPHIL # 2.9 10^3/ul (1.6-7.5); NEUTROPHILS % 48.8 % (39.0-77.0); PLATELET COUNT 323 10^3/UL (140-415); RED BLOOD COUNT 3.56 10^6/ul (4.20-5.40); RED CELL DISTRIBUTION WIDTH 13.1 % (11.5-14.5)
[2019-01-20 07:02] LABS: ANION GAP 4 (5-13); BLOOD UREA NITROGEN 11 mg/dl (7-20); CALCIUM 9.4 mg/dl (8.4-10.2); CARBON DIOXIDE 29 mmol/L (21-31); CHLORIDE 107 mmol/L (97-110); CREATININE 0.62 mg/dl (0.44-1.00); GLUCOSE 106 mg/dl (70-220); POTASSIUM 3.9 mmol/L (3.5-5.1); SODIUM 140 mmol/L (135-144)
[2019-01-20] MEDS: RISPERIDONE 1 MG TAB PO ×2 (09:01→20:47)
[2019-01-20] MEDS: LORATADINE 10 MG TAB PO (09:01)
[2019-01-20] MEDS: MULTIVITAMINS THERAPEUTIC TAB PO (09:01)
[2019-01-20] MEDS: NEUTRA-PHOS 250 MG PACKET PO ×2 (09:01→20:47)
[2019-01-20] MEDS: FAMOTIDINE 20 MG TAB PO (09:01)
[2019-01-20] MEDS: ZINC SULFATE 220 MG CAP PO (09:01)
[2019-01-20] MEDS: ASCORBIC ACID 500 MG TAB PO (09:01)
[2019-01-20] MEDS: FLUOCINONIDE 0.05% 15 GM CR TOP ×2 (09:02→20:49)
[2019-01-21 05:45] LABS: ADD MAN DIFF? NO
[2019-01-21 05:51] LABS: WHITE BLOOD COUNT 7.9 10^3/ul (4.8-10.8)
[2019-01-21 05:51] LABS: BASOPHIL # 0.1 10^3/ul (0.0-0.1); BASOPHILS % 0.6 % (0.0-2.0); EOSINOPHILS # 0.3 10^3/ul (0.0-0.5); EOSINOPHILS % 3.4 % (0.0-7.0); HEMOGLOBIN 11.6 g/dl (12.0-16.0); LYMPHOCYTES # 1.8 10^3/ul (0.8-2.9); LYMPHOCYTES % 22.8 % (15.0-51.0); MEAN CORPUSCULAR HEMOGLOBIN 31.8 pg (29.0-33.0); MEAN CORPUSCULAR HGB CONC 32.2 g/dl (32.0-37.0); MEAN CORPUSCULAR VOLUME 98.6 fl (82.0-101.0); MEAN PLATELET VOLUME 10.7 fl (7.4-10.4); MONOCYTE # 0.6 10^3/ul (0.3-0.9); MONOCYTES % 7.2 % (0.0-11.0); NEUTROPHIL # 5.2 10^3/ul (1.6-7.5); NEUTROPHILS % 65.2 % (39.0-77.0); PLATELET COUNT 304 10^3/UL (140-415); RED BLOOD COUNT 3.65 10^6/ul (4.20-5.40); RED CELL DISTRIBUTION WIDTH 13.2 % (11.5-14.5)
[2019-01-21 06:29] LABS: ANION GAP 7 (5-13); BLOOD UREA NITROGEN 12 mg/dl (7-20); CALCIUM 9.5 mg/dl (8.4-10.2); CARBON DIOXIDE 26 mmol/L (21-31); CHLORIDE 108 mmol/L (97-110); CREATININE 0.67 mg/dl (0.44-1.00); GLUCOSE 123 mg/dl (70-220); POTASSIUM 3.9 mmol/L (3.5-5.1); SODIUM 141 mmol/L (135-144)
[2019-01-21] MEDS: ASCORBIC ACID 500 MG TAB PO (09:28)
[2019-01-21] MEDS: FAMOTIDINE 20 MG TAB PO (09:28)
[2019-01-21] MEDS: LORATADINE 10 MG TAB PO (09:28)
[2019-01-21] MEDS: RISPERIDONE 1 MG TAB PO ×2 (09:28→20:48)
[2019-01-21] MEDS: MULTIVITAMINS THERAPEUTIC TAB PO (09:29)
[2019-01-21] MEDS: NEUTRA-PHOS 250 MG PACKET PO ×2 (09:29→20:48)
[2019-01-21] MEDS: ZINC SULFATE 220 MG CAP PO (09:29)
[2019-01-21] MEDS: FLUOCINONIDE 0.05% 15 GM CR TOP ×2 (09:30→20:49)
[2019-01-22 07:14] LABS: ADD MAN DIFF? NO
[2019-01-22 07:17] LABS: BASOPHIL # 0.1 10^3/ul (0.0-0.1); BASOPHILS % 0.8 % (0.0-2.0); EOSINOPHILS # 0.4 10^3/ul (0.0-0.5); EOSINOPHILS % 4.7 % (0.0-7.0); HEMATOCRIT 35.9 % (37.0-47.0); HEMOGLOBIN 11.7 g/dl (12.0-16.0); LYMPHOCYTES # 2.4 10^3/ul (0.8-2.9); LYMPHOCYTES % 31.8 % (15.0-51.0); MEAN CORPUSCULAR HEMOGLOBIN 32.8 pg (29.0-33.0); MEAN CORPUSCULAR HGB CONC 32.6 g/dl (32.0-37.0); MEAN CORPUSCULAR VOLUME 100.6 fl (82.0-101.0); MEAN PLATELET VOLUME 11.1 fl (7.4-10.4); MONOCYTE # 0.6 10^3/ul (0.3-0.9); MONOCYTES % 7.8 % (0.0-11.0); NEUTROPHILS % 54.4 % (39.0-77.0); PLATELET COUNT 281 10^3/UL (140-415); RED BLOOD COUNT 3.57 10^6/ul (4.20-5.40); RED CELL DISTRIBUTION WIDTH 13.2 % (11.5-14.5)
[2019-01-22 07:17] LABS: WHITE BLOOD COUNT 7.4 10^3/ul (4.8-10.8)
[2019-01-22 07:52] LABS: ANION GAP 6 (5-13); BLOOD UREA NITROGEN 15 mg/dl (7-20); CALCIUM 9.8 mg/dl (8.4-10.2); CARBON DIOXIDE 26 mmol/L (21-31); CHLORIDE 109 mmol/L (97-110); GLUCOSE 96 mg/dl (70-220); POTASSIUM 3.8 mmol/L (3.5-5.1); SODIUM 141 mmol/L (135-144)
[2019-01-22] MEDS: FAMOTIDINE 20 MG TAB PO (08:40)
[2019-01-22] MEDS: ASCORBIC ACID 500 MG TAB PO (08:40)
[2019-01-22] MEDS: NEUTRA-PHOS 250 MG PACKET PO ×2 (08:40→20:29)
[2019-01-22] MEDS: RISPERIDONE 1 MG TAB PO ×2 (08:40→20:29)
[2019-01-22] MEDS: ZINC SULFATE 220 MG CAP PO (08:40)
[2019-01-22] MEDS: MULTIVITAMINS THERAPEUTIC TAB PO (08:40)
[2019-01-22] MEDS: FLUOCINONIDE 0.05% 15 GM CR TOP ×2 (08:43→20:30)
[2019-01-22] MEDS: LORATADINE 10 MG TAB PO (08:49)
[2019-01-23 06:05] LABS: ADD MAN DIFF? NO
[2019-01-23 06:08] LABS: WHITE BLOOD COUNT 7.6 10^3/ul (4.8-10.8)
[2019-01-23 06:08] LABS: BASOPHIL # 0.1 10^3/ul (0.0-0.1); BASOPHILS % 0.9 % (0.0-2.0); EOSINOPHILS # 0.3 10^3/ul (0.0-0.5); EOSINOPHILS % 3.8 % (0.0-7.0); HEMATOCRIT 38.1 % (37.0-47.0); HEMOGLOBIN 12.2 g/dl (12.0-16.0); LYMPHOCYTES # 2.6 10^3/ul (0.8-2.9); LYMPHOCYTES % 34.4 % (15.0-51.0); MEAN PLATELET VOLUME 10.8 fl (7.4-10.4); MONOCYTE # 0.6 10^3/ul (0.3-0.9); NEUTROPHILS % 52.4 % (39.0-77.0); PLATELET COUNT 283 10^3/UL (140-415); RED BLOOD COUNT 3.81 10^6/ul (4.20-5.40); RED CELL DISTRIBUTION WIDTH 13.2 % (11.5-14.5)
[2019-01-23 06:37] LABS: ANION GAP 8 (5-13); BLOOD UREA NITROGEN 13 mg/dl (7-20); CALCIUM 10.2 mg/dl (8.4-10.2); CARBON DIOXIDE 27 mmol/L (21-31); CHLORIDE 107 mmol/L (97-110); CREATININE 0.65 mg/dl (0.44-1.00); GLUCOSE 122 mg/dl (70-220); POTASSIUM 3.5 mmol/L (3.5-5.1); SODIUM 142 mmol/L (135-144)
[2019-01-23] MEDS: NEUTRA-PHOS 250 MG PACKET PO ×2 (08:46→20:58)
[2019-01-23] MEDS: FAMOTIDINE 20 MG TAB PO (08:46)
[2019-01-23] MEDS: MULTIVITAMINS THERAPEUTIC TAB PO (08:46)
[2019-01-23] MEDS: LORATADINE 10 MG TAB PO (08:46)
[2019-01-23] MEDS: ASCORBIC ACID 500 MG TAB PO (08:46)
[2019-01-23] MEDS: RISPERIDONE 1 MG TAB PO ×2 (08:46→20:58)
[2019-01-23] MEDS: ZINC SULFATE 220 MG CAP PO (08:46)
[2019-01-23] MEDS: FLUOCINONIDE 0.05% 15 GM CR TOP ×2 (08:47→21:00)
[2019-01-23] MEDS: SENNA TAB PO (20:58)
[2019-01-23] MEDS: NA PHOSPHATE/BIPHOS 133 ML ENEMA PR (20:58)
[2019-01-24] MEDS ORDERED: LACTULOSE 30ML CUP PO (03:30)
[2019-01-24 06:19] LABS: ADD MAN DIFF? NO
[2019-01-24 06:24] LABS: WHITE BLOOD COUNT 7.3 10^3/ul (4.8-10.8)
[2019-01-24 06:24] LABS: BASOPHILS % 0.6 % (0.0-2.0); EOSINOPHILS # 0.3 10^3/ul (0.0-0.5); EOSINOPHILS % 3.9 % (0.0-7.0); HEMATOCRIT 36.5 % (37.0-47.0); HEMOGLOBIN 11.7 g/dl (12.0-16.0); LYMPHOCYTES # 2.1 10^3/ul (0.8-2.9); LYMPHOCYTES % 28.5 % (15.0-51.0); MEAN CORPUSCULAR HEMOGLOBIN 32.2 pg (29.0-33.0); MEAN CORPUSCULAR HGB CONC 32.1 g/dl (32.0-37.0); MEAN CORPUSCULAR VOLUME 100.6 fl (82.0-101.0); MEAN PLATELET VOLUME 11.1 fl (7.4-10.4); MONOCYTE # 0.7 10^3/ul (0.3-0.9); MONOCYTES % 9.6 % (0.0-11.0); NEUTROPHIL # 4.2 10^3/ul (1.6-7.5); PLATELET COUNT 231 10^3/UL (140-415); RED BLOOD COUNT 3.63 10^6/ul (4.20-5.40); RED CELL DISTRIBUTION WIDTH 13.2 % (11.5-14.5)
[2019-01-24 06:46] LABS: ANION GAP 7 (5-13); BLOOD UREA NITROGEN 13 mg/dl (7-20); CARBON DIOXIDE 27 mmol/L (21-31); CHLORIDE 107 mmol/L (97-110); CREATININE 0.59 mg/dl (0.44-1.00); GLUCOSE 118 mg/dl (70-220); POTASSIUM 3.8 mmol/L (3.5-5.1); SODIUM 141 mmol/L (135-144)
[2019-01-24] MEDS: RISPERIDONE 1 MG TAB PO ×2 (08:50→20:36)
[2019-01-24] MEDS: MULTIVITAMINS THERAPEUTIC TAB PO (08:50)
[2019-01-24] MEDS: NEUTRA-PHOS 250 MG PACKET PO ×2 (08:50→20:36)
[2019-01-24] MEDS: LORATADINE 10 MG TAB PO (08:50)
[2019-01-24] MEDS: ZINC SULFATE 220 MG CAP PO (08:50)
[2019-01-24] MEDS: FAMOTIDINE 20 MG TAB PO (08:50)
[2019-01-24] MEDS: ASCORBIC ACID 500 MG TAB PO (08:50)
[2019-01-24] MEDS: FLUOCINONIDE 0.05% 15 GM CR TOP ×2 (08:56→20:38)
[2019-01-24] MEDS: SENNA TAB PO ×2 (08:58→20:36)
[2019-01-24] MEDS: ACETAMINOPHEN 325 MG TAB PO (13:05)
[2019-01-25 07:44] LABS: ADD MAN DIFF? NO
[2019-01-25 07:47] LABS: WHITE BLOOD COUNT 8.6 10^3/ul (4.8-10.8)
[2019-01-25 07:47] LABS: BASOPHIL # 0.1 10^3/ul (0.0-0.1); BASOPHILS % 0.6 % (0.0-2.0); EOSINOPHILS # 0.3 10^3/ul (0.0-0.5); EOSINOPHILS % 3.8 % (0.0-7.0); HEMATOCRIT 33.1 % (37.0-47.0); HEMOGLOBIN 10.7 g/dl (12.0-16.0); LYMPHOCYTES % 23.7 % (15.0-51.0); MEAN CORPUSCULAR HEMOGLOBIN 32.3 pg (29.0-33.0); MEAN CORPUSCULAR HGB CONC 32.3 g/dl (32.0-37.0); MONOCYTE # 0.6 10^3/ul (0.3-0.9); MONOCYTES % 6.8 % (0.0-11.0); NEUTROPHIL # 5.6 10^3/ul (1.6-7.5); NEUTROPHILS % 64.9 % (39.0-77.0); PLATELET COUNT 211 10^3/UL (140-415); RED BLOOD COUNT 3.31 10^6/ul (4.20-5.40); RED CELL DISTRIBUTION WIDTH 13.5 % (11.5-14.5)
[2019-01-25 08:11] LABS: ANION GAP 5 (5-13); BLOOD UREA NITROGEN 11 mg/dl (7-20); CALCIUM 9.2 mg/dl (8.4-10.2); CARBON DIOXIDE 29 mmol/L (21-31); CHLORIDE 107 mmol/L (97-110); GLUCOSE 99 mg/dl (70-220); POTASSIUM 3.7 mmol/L (3.5-5.1); SODIUM 141 mmol/L (135-144)
[2019-01-25] MEDS: SENNA TAB PO (08:55)
[2019-01-25] MEDS: MULTIVITAMINS THERAPEUTIC TAB PO (08:55)
[2019-01-25] MEDS: NEUTRA-PHOS 250 MG PACKET PO (08:55)
[2019-01-25] MEDS: RISPERIDONE 1 MG TAB PO (08:55)
[2019-01-25] MEDS: ZINC SULFATE 220 MG CAP PO (08:55)
[2019-01-25] MEDS: LORATADINE 10 MG TAB PO (08:55)
[2019-01-25] MEDS: ASCORBIC ACID 500 MG TAB PO (08:55)
[2019-01-25] MEDS: FAMOTIDINE 20 MG TAB PO (08:55)
[2019-01-25] MEDS: FLUOCINONIDE 0.05% 15 GM CR TOP (08:56)
== END 2019-01-25 13:15 | DRG 871 ==
LOC: 2NE 01-05 14:59 → 5EC 01-14 23:20 → 6WM 23:15 → E/R 21:18 → ICU 01-02 22:52
DX: A41.9 Sepsis, unspecified organism (principal); G92 Toxic encephalopathy; J96.00 Acute respiratory failure, unspecified whether with hypoxia or hypercapnia; N17.9 Acute kidney failure, unspecified; E87.0 Hyperosmolality and hypernatremia; N39.0 Urinary tract infection, site not specified; T81.41XA Infection following a procedure, superficial incisional surgical site, initial encounter; E83.39 Other disorders of phosphorus metabolism; K59.00 Constipation, unspecified; R13.10 Dysphagia, unspecified; D69.6 Thrombocytopenia, unspecified; Z79.82 Long term (current) use of aspirin; F03.90 Unspecified dementia, unspecified severity, without behavioral disturbance, psychotic disturbance, mood disturbance, and anxiety; L89.91 Pressure ulcer of unspecified site, stage 1; I05.0 Rheumatic mitral stenosis; N73.8 Other specified female pelvic inflammatory diseases
CPT/HCPCS: 36415; 36600; 70450; 71045; 76705; 76775; 80048; 80053; 80202; 81001; 81003; 82043; 82565; 82803; 82962; 83036; 83615; 83735; 83935; 84100; 84134; 84155; 84300; 84443; 84520; 85025; 85049; 85362; 85378; 85384; 85610; 85670; 85730; 86703; 86704; 86709; 86803; 87040-91; 87081; 87086; 87340; 92526; 92610; 93306; 97110; 97161; 97530; 99291-25